=== PATIENT | female | born 1945 | race Caucasian/White ===

== ENCOUNTER 2021-09-15 12:02 | Inpatient (IN) | payer MEDICARE ==
[2021-09-15] MEDS ORDERED: Aspirin Chewable 81 MG TAB ONE (12:20)
[2021-09-15] MEDS ORDERED: Metoprolol Tartrate 5 MG/5 ML VIAL ONE (12:20)
[2021-09-15] MEDS ORDERED: Morphine 4 MG/ML VIAL ONE (12:28)
[2021-09-15] MEDS ORDERED: Nitroglycerin 50 MG/250 ML BOT 250 ML ONE (12:30)
[2021-09-15] MEDS ORDERED: Heparin 10,000 UNITS/ 10 ML VIAL ONE (12:30)
[2021-09-15] MEDS ORDERED: Verapamil 5 MG/2 ML VIAL ONE (12:31)
[2021-09-15] MEDS ORDERED: Bivalirudin 250 MG VIAL ONE (12:31)
[2021-09-15] MEDS ORDERED: Adenosine 6 MG/2 ML VIAL ONE (12:31)
[2021-09-15] MEDS ORDERED: Fentanyl 100 MCG/2 ML VIAL ONE (12:32)
[2021-09-15] MEDS ORDERED: Midazolam HCl 2 mg/2 ml Vial ONE (12:32)
[2021-09-15 12:35] LABS: #Eosinphils 0.1 10x3/uL (0.0-0.5); #Monocytes 0.6 10x3/uL (0.0-1.1); #Neutrophils 3.4 10x3/uL (1.5-8.4); %Basophils 0.3 % (0.0-2.0); %Lymphocytes 27.7 % (18.0-47.0); %Neutrophils 59.7 % (40.0-75.0); Mean Corpuscular HGB CONC 31.6 g/dL (32.0-36.0); Mean Corpuscular Hemoglobin 30.6 pg (27.0-33.0); Mean Corpuscular Volume 96.7 fl (81.6-98.3); Mean Platelet Volume 10.7 fl (7.4-10.4); Platelet Count 204 10x3/uL (150-450); RBC Distribution Width 12.4 % (11.5-14.5); Red Blood Cell (RBC) Count 4.25 10x6/uL (3.90-5.03); White Blood Cell (WBC) Count 5.7 10x3/uL (3.5-10.5)
[2021-09-15] MEDS ORDERED: TICAGRELOR 90 MG TABLET ONE (12:36)
[2021-09-15] MEDS ORDERED: Ondansetron PF 4 MG/2 ML Vial ONE (12:40)
[2021-09-15 12:52] LABS: ALT (SGPT) 20 U/L (8-55); AST (SGOT) 35 U/L (5-34); Albumin 4.6 g/dL (3.4-4.8); Alkaline Phosphatase 82 U/L (40-110); Anion Gap 19 mmol/L (10-20); BUN (Urea Nitrogen) 15 mg/dL (9.8-20.1); Bilirubin, Total 0.5 mg/dL (0.2-1.2); Calc. Creatinine Clearance 0 mL/min (70-130); Calcium 10.3 mg/dL (7.8-10.44); Carbon Dioxide 24 mmol/L (23-31); Chloride 103 mmol/L (98-107); Glucose 105 mg/dL (83-110); Potassium 4.1 mmol/L (3.5-5.1); Protein, Total 7.6 g/dL (5.8-8.1); Sodium 142 mmol/L (136-145)
[2021-09-15] MEDS ORDERED: Lidocaine 1% (PF) 30 ML VIAL ONE (12:54)
[2021-09-15] MEDS ORDERED: Senokot S 8.6-50 MG TAB PO PRN (13:06)
[2021-09-15] MEDS ORDERED: Calcium Carbonate 500 MG ChewTAB PO PRN (13:06)
[2021-09-15] MEDS ORDERED: Ondansetron ODT 4 MG TAB PO PRN (13:06)
[2021-09-15] MEDS ORDERED: Zolpidem Tartrate 5 MG TAB PO PRN (13:06)
[2021-09-15] MEDS ORDERED: HYDROcodone/Acetaminophen 7.5/325 mg Tablet PO PRN (13:06)
[2021-09-15] MEDS ORDERED: Acetaminophen 325 MG TAB PO PRN (13:06)
[2021-09-15] MEDS ORDERED: Loperamide HCl 2 MG CAP PO PRN (13:06)
[2021-09-15 13:15] LABS: CKMB 3.7 ng/mL (0-6.6)
[2021-09-15] MEDS ORDERED: Nitroglycerin 0.4 MG TAB (25 Tab Bottle) SL PRN (13:25)
[2021-09-15] MEDS ORDERED: Acetaminophen/Codeine 30-300mg Tablet PO PRN ×2 (13:25)
[2021-09-15] MEDS ORDERED: Sodium Chloride 0.9% 200 ML IV PRN (13:25)
[2021-09-15 14:24] VITALS: BMI 22.3
[2021-09-15 15:00] LABS: Troponin I 0.353 ng/mL (< 0.028)
[2021-09-15] MEDS: Sodium Chloride 0.9% 1,000 ML IV SCH (15:19)
[2021-09-15 20:15] LABS: Troponin I 4.059 ng/mL (< 0.028)
[2021-09-15] MEDS: Metoprolol Tartrate 25 MG TAB PO SCH (20:19)
[2021-09-15] MEDS: Atorvastatin Calcium 40 MG TAB PO SCH (20:19)
[2021-09-15] MEDS: TICAGRELOR 90 MG TABLET PO SCH (20:20)
[2021-09-15 23:27] LABS: Troponin I 5.093 ng/mL (< 0.028)
[2021-09-16 03:47] LABS: #Eosinphils 0.1 10x3/uL (0.0-0.5); #Monocytes 0.5 10x3/uL (0.0-1.1); #Neutrophils 3.4 10x3/uL (1.5-8.4); %Basophils 0.4 % (0.0-2.0); %Eosinophils 1.4 % (0.0-6.0); %Lymphocytes 23.4 % (18.0-47.0); %Monocytes 9.8 % (0.0-10.0); %Neutrophils 64.8 % (40.0-75.0); Hemoglobin 10.7 g/dL (12.0-15.5); Mean Corpuscular HGB CONC 32.3 g/dL (32.0-36.0); Mean Corpuscular Hemoglobin 31.5 pg (27.0-33.0); Mean Corpuscular Volume 97.4 fl (81.6-98.3); Mean Platelet Volume 10.9 fl (7.4-10.4); Platelet Count 164 10x3/uL (150-450); RBC Distribution Width 12.5 % (11.5-14.5); White Blood Cell (WBC) Count 5.2 10x3/uL (3.5-10.5)
[2021-09-16 04:21] LABS: ALT (SGPT) 15 U/L (8-55); AST (SGOT) 46 U/L (5-34); Albumin 3.5 g/dL (3.4-4.8); Alkaline Phosphatase 66 U/L (40-110); Anion Gap 12 mmol/L (10-20); BUN (Urea Nitrogen) 12 mg/dL (9.8-20.1); Bilirubin, Total 0.5 mg/dL (0.2-1.2); Calc. Creatinine Clearance 67 mL/min (70-130); Calcium 8.6 mg/dL (7.8-10.44); Carbon Dioxide 24 mmol/L (23-31); Cardiac Risk 2.8 (Less than 4.5); Chloride 109 mmol/L (98-107); Cholesterol 164 mg/dl (< 200 Desired); Globulin 2.4 g/dL (2.4-3.5); Glucose 89 mg/dL (83-110); HDL Cholesterol 59 mg/dL (>60 Neg Risk); LDL Cholesterol, Calculated 95 mg/dL; Potassium 3.6 mmol/L (3.5-5.1); Protein, Total 5.9 g/dL (5.8-8.1); Sodium 141 mmol/L (136-145); Triglycerides 52 mg/dL (Less than 150)
[2021-09-16] MEDS: Sodium Chloride 0.9% 1,000 ML IV SCH (04:44)
[2021-09-16] MEDS: Enoxaparin Sodium 40 MG/0.4 ML SYRINGE SC SCH (08:55)
[2021-09-16] MEDS: TICAGRELOR 90 MG TABLET PO SCH ×2 (08:56→20:28)
[2021-09-16] MEDS: Aspirin 81 mg Enteric Coated Tablet PO SCH (08:56)
[2021-09-16] MEDS: Lisinopril 2.5 MG TAB PO SCH (08:56)
[2021-09-16] MEDS: Metoprolol Tartrate 25 MG TAB PO SCH ×2 (08:56→20:29)
[2021-09-16] MEDS: Atorvastatin Calcium 40 MG TAB PO SCH (20:28)
[2021-09-17 05:54] LABS: CKMB 3.9 ng/mL (0-6.6)
[2021-09-17] MEDS: Aspirin 81 mg Enteric Coated Tablet PO SCH (09:09)
[2021-09-17] MEDS: TICAGRELOR 90 MG TABLET PO SCH ×2 (09:10→20:35)
[2021-09-17] MEDS: Lisinopril 2.5 MG TAB PO SCH (09:11)
[2021-09-17] MEDS: Metoprolol Tartrate 25 MG TAB PO SCH ×2 (09:12→20:36)
[2021-09-17] MEDS: Enoxaparin Sodium 40 MG/0.4 ML SYRINGE SC SCH (09:12)
[2021-09-17] MEDS ORDERED: Sodium Chloride 0.9% 400 ML IVPB SCH (19:15)
[2021-09-17 19:34] LABS: Hemoglobin 10.3 g/dL (12.0-15.5)
[2021-09-17] MEDS: Atorvastatin Calcium 40 MG TAB PO SCH (20:35)
[2021-09-17] MEDS: Sodium Chloride 0.9% 1,000 ML IV SCH (21:08)
[2021-09-18 03:07] LABS: #Eosinphils 0.2 10x3/uL (0.0-0.5); #Monocytes 0.7 10x3/uL (0.0-1.1); #Neutrophils 3.7 10x3/uL (1.5-8.4); %Basophils 0.3 % (0.0-2.0); %Eosinophils 2.7 % (0.0-6.0); %Lymphocytes 23.8 % (18.0-47.0); %Monocytes 11.1 % (0.0-10.0); %Neutrophils 61.9 % (40.0-75.0); Hemoglobin 10.6 g/dL (12.0-15.5); Mean Corpuscular HGB CONC 31.7 g/dL (32.0-36.0); Mean Corpuscular Hemoglobin 31.3 pg (27.0-33.0); Mean Corpuscular Volume 98.5 fl (81.6-98.3); Mean Platelet Volume 10.8 fl (7.4-10.4); Platelet Count 148 10x3/uL (150-450); RBC Distribution Width 12.7 % (11.5-14.5); Red Blood Cell (RBC) Count 3.39 10x6/uL (3.90-5.03)
[2021-09-18] MEDS ORDERED: Heparin 10,000 UNITS/ 10 ML VIAL ONE (04:38)
[2021-09-18] MEDS ORDERED: Aspirin Chewable 81 MG TAB ONE (04:38)
[2021-09-18] MEDS ORDERED: Nitroglycerin 0.4 MG TAB (25 Tab Bottle) ONE (04:38)
[2021-09-18] MEDS ORDERED: Metoprolol Tartrate 5 MG/5 ML VIAL ONE (04:38)
[2021-09-18 05:43] VITALS: TEMP 98
[2021-09-18] MEDS: Aspirin 81 mg Enteric Coated Tablet PO SCH (08:02)
[2021-09-18] MEDS: Enoxaparin Sodium 40 MG/0.4 ML SYRINGE SC SCH ×2 (08:03→08:23)
[2021-09-18] MEDS: Lisinopril 2.5 MG TAB PO SCH (08:03)
[2021-09-18] MEDS: Metoprolol Tartrate 25 MG TAB PO SCH ×2 (08:04→15:48)
[2021-09-18] MEDS: TICAGRELOR 90 MG TABLET PO SCH ×2 (08:07→15:49)
[2021-09-18 08:08] VITALS: BP 103/65
[2021-09-18] MEDS: Atorvastatin Calcium 40 MG TAB PO SCH (15:48)
== END 2021-09-18 16:30 | disposition home or self-care (01) | DRG 247 ==
LOC: CSHERS 12:02 → CSHIMCU 14:01
PROVIDERS: ADMIT Specialist; ATTEND Specialist
PROC: 027034Z Dilation of Coronary Artery, One Artery with Drug-eluting Intraluminal Device, Percutaneous Approach (ICD-10-PCS; principal; 2021-09-15)
PROC: 02C03ZZ Extirpation of Matter from Coronary Artery, One Artery, Percutaneous Approach (ICD-10-PCS; 2021-09-15)
PROC: 4A023N7 Measurement of Cardiac Sampling and Pressure, Left Heart, Percutaneous Approach (ICD-10-PCS; 2021-09-15)
PROC: B2151ZZ Fluoroscopy of Left Heart using Low Osmolar Contrast (ICD-10-PCS; 2021-09-15)
PROC: B2111ZZ Fluoroscopy of Multiple Coronary Arteries using Low Osmolar Contrast (ICD-10-PCS; 2021-09-15)
DX: I21.09 ST elevation (STEMI) myocardial infarction involving other coronary artery of anterior wall (principal); I25.10 Atherosclerotic heart disease of native coronary artery without angina pectoris; I34.1 Nonrheumatic mitral (valve) prolapse; I34.0 Nonrheumatic mitral (valve) insufficiency; D15.1 Benign neoplasm of heart; E78.5 Hyperlipidemia, unspecified; Z88.2 Allergy status to sulfonamides; Z79.82 Long term (current) use of aspirin; Z90.49 Acquired absence of other specified parts of digestive tract; Z85.51 Personal history of malignant neoplasm of bladder; Z90.89 Acquired absence of other organs; Z88.1 Allergy status to other antibiotic agents
CPT/HCPCS: 36415; 71045; 80053; 80061; 82553; 84484; 85018; 85025; 85347; 92941; 92978; 93005; 93010; 93306; 93458; 96374; 96375; 97139; 99152; 99153; C1725; C1753; C1874; C1887; C9606; J0153; J0583; J1644; J1650; J2001; J2250; J2270; J2405; J3010; J7030; J7050

== ENCOUNTER 2022-03-20 11:43 | Emergency (ER) | payer MEDICARE ==
[2022-03-20 12:40] LABS: Bilirubin Neg (Negative); Blood, Urine 10 (Negative); Clarity Clear (Clear); Glucose, Urine (Dipstick) Normal (Negative); Ketone, Urine Negative (Negative); Leukocyte Negative (Negative); Nitrite Negative (Negative); Protein, Urine (Dipstick) Negative (Neg-Trace); Urobilinogen Normal mg/dL (Less than 2); pH, Urine 6.5 (5.0-9.0)
[2022-03-20] MEDS ORDERED: Iopamidol 300 61% 100 ML VIAL FS ONE (12:55)
[2022-03-20 12:56] LABS: Bacteria/HPF 2+ HPF (None Seen); RBC/HPF 0-3 HPF (0-3); Squamous Epithelial 0-3 HPF (0-3); Transitional Epithelial 0-3 HPF (None Seen); WBC/HPF 0-3 HPF (0-3)
[2022-03-20] MEDS ORDERED: Acetaminophen 500 MG TAB ONE (13:05)
[2022-03-20 13:06] LABS: #Eosinphils 0.1 10x3/uL (0.0-0.5); #Monocytes 0.7 10x3/uL (0.0-1.1); #Neutrophils 3.5 10x3/uL (1.5-8.4); %Basophils 0.4 % (0.0-2.0); %Eosinophils 2.4 % (0.0-6.0); %Lymphocytes 20.4 % (18.0-47.0); %Monocytes 12.6 % (0.0-10.0); Hemoglobin 11.4 g/dL (12.0-15.5); Mean Corpuscular HGB CONC 33.1 g/dL (32.0-36.0); Mean Corpuscular Hemoglobin 32.3 pg (27.0-33.0); Mean Corpuscular Volume 97.5 fl (81.6-98.3); Mean Platelet Volume 10.4 fl (7.4-10.4); Platelet Count 154 10x3/uL (150-450); RBC Distribution Width 13.6 % (11.5-14.5); Red Blood Cell (RBC) Count 3.53 10x6/uL (3.90-5.03); White Blood Cell (WBC) Count 5.5 10x3/uL (3.5-10.5)
[2022-03-20 13:14] LABS: ALT (SGPT) 25 U/L (8-55); AST (SGOT) 28 U/L (5-34); Alkaline Phosphatase 68 U/L (40-110); Anion Gap 12 mmol/L (10-20); BUN (Urea Nitrogen) 18 mg/dL (9.8-20.1); Bilirubin, Total 0.5 mg/dL (0.2-1.2); Calc. Creatinine Clearance 0 mL/min (70-130); Calcium 9.9 mg/dL (7.8-10.44); Carbon Dioxide 29 mmol/L (23-31); Chloride 102 mmol/L (98-107); Estimated GFR 76; Globulin 2.8 g/dL (2.4-3.5); Glucose 85 mg/dL (83-110); Potassium 3.9 mmol/L (3.5-5.1); Protein, Total 6.8 g/dL (5.8-8.1); Sodium 139 mmol/L (136-145)
== END 2022-03-20 15:33 | disposition home or self-care (01) ==
LOC: CSHERS 11:43
DX: N39.0 Urinary tract infection, site not specified (principal)
CPT/HCPCS: 36415; 74177; 80053; 81003; 81015; 85025; Q9967

== ENCOUNTER → 2023-08-02 | Day surgery (SDC) | payer MEDICARE | LOC: CSHRAD 15:31 | PROVIDERS: ATTEND Nurse Practitioner Family | DX: M25.551 Pain in right hip (principal); M79.651 Pain in right thigh ==

== ENCOUNTER 2023-09-11 21:02 | Emergency (ER) | payer MEDICARE ==
[2023-09-11 21:30] LABS: #Eosinphils 0.2 10x3/uL (0.0-0.5); #Monocytes 0.6 10x3/uL (0.0-1.1); #Neutrophils 3.3 10x3/uL (1.5-8.4); %Basophils 0.5 % (0.0-2.0); %Eosinophils 3.1 % (0.0-6.0); %Lymphocytes 28.6 % (18.0-47.0); %Monocytes 10.5 % (0.0-10.0); %Neutrophils 57.1 % (40.0-75.0); Hematocrit 34.9 % (34.9-44.5); Hemoglobin 11.6 g/dL (12.0-15.5); Mean Corpuscular HGB CONC 33.2 g/dL (32.0-36.0); Mean Corpuscular Hemoglobin 31.7 pg (27.0-33.0); Mean Corpuscular Volume 95.4 fl (81.6-98.3); Mean Platelet Volume 10.4 fl (7.4-10.4); Platelet Count 180 10x3/uL (150-450); RBC Distribution Width 12.5 % (11.5-14.5); Red Blood Cell (RBC) Count 3.66 10x6/uL (3.90-5.03); White Blood Cell (WBC) Count 5.8 10x3/uL (3.5-10.5)
[2023-09-11] MEDS ORDERED: Morphine 4 MG/ML VIAL ONE (21:31)
[2023-09-11] MEDS ORDERED: Ondansetron PF 4 MG/2 ML Vial ONE (21:31)
[2023-09-11 21:57] LABS: ALT (SGPT) 19 U/L (8-55); AST (SGOT) 25 U/L (5-34); Alkaline Phosphatase 87 U/L (40-110); Anion Gap 12 mmol/L (10-20); BUN (Urea Nitrogen) 22 mg/dL (9.8-20.1); Bilirubin, Total 0.2 mg/dL (0.2-1.2); Calc. Creatinine Clearance 0 mL/min (70-130); Calcium 9.5 mg/dL (7.8-10.44); Carbon Dioxide 29 mmol/L (23-31); Chloride 102 mmol/L (98-107); Estimated GFR 73; Globulin 3.4 g/dL (2.4-3.5); Glucose 136 mg/dL (83-110); Lipase 31 U/L (8-78); Potassium 4.1 mmol/L (3.5-5.1); Protein, Total 7.4 g/dL (5.8-8.1); Sodium 139 mmol/L (136-145)
[2023-09-11 22:06] LABS: SARS-CoV-2 NAA Rapid Test Not Detected (NotDetected)
[2023-09-11 22:28] LABS: Troponin I Less than 0.010 ng/mL (< 0.028)
[2023-09-11] MEDS ORDERED: Meclizine HCl 25 MG TAB ONE (22:32)
[2023-09-11 22:43] LABS: Bilirubin Neg (Negative); Blood, Urine 25 (Negative); Clarity Slightly Cloudy (Clear); Glucose, Urine (Dipstick) Normal (Negative); Ketone, Urine Negative (Negative); Leukocyte Negative (Negative); Nitrite Negative (Negative); Protein, Urine (Dipstick) 15 mg/dl (Neg-Trace); Urobilinogen Normal mg/dL (Less than 2)
[2023-09-11 22:50] LABS: Bacteria/HPF None Seen HPF (None Seen); CAUTI Indications for Culture Alt mental st,lethar; RBC/HPF 0-3 HPF (0-3); Squamous Epithelial 0-3 HPF (0-3); Urine Culture Reflex No No; WBC/HPF None Seen HPF (0-3)
== END 2023-09-12 03:42 | disposition home or self-care (01) ==
LOC: CSHERS 21:02
DX: R42 Dizziness and giddiness (principal)
CPT/HCPCS: 0240U; 70450; 80053; 81001; 83690; 84484; 85025; 93005; 36415; 93010; 96361; 96374; 96375; J2270; J2405

== ENCOUNTER 2025-05-05 15:09 | Outpatient (CLI) | payer MEDICARE | END 2025-05-05 15:10 | disposition home or self-care (01) | LOC: CSHULT 15:09 | PROVIDERS: ATTEND Family Medicine | DX: N63.15 Unspecified lump in the right breast, overlapping quadrants (principal) ==

== ENCOUNTER 2025-05-11 14:11 | Outpatient (CLI) | payer MEDICARE | END 2025-05-11 14:12 | disposition home or self-care (01) | LOC: CSHCP 14:11 | PROVIDERS: ATTEND Internal Medicine | DX: J45.909 Unspecified asthma, uncomplicated (principal) | CPT/HCPCS: 94060; 94618; 94664; 94726; 94729 ==